=== PATIENT | female | born 1990 | race Two or more races ===

== ENCOUNTER 2019-04-10 00:14 | Emergency (ER) | payer SELFPAY ==
[2019-04-10] MEDS ORDERED: Diphtheria,Pertussis(Acell),Tetanus Vaccine 0.5 ML Syringe IM ONE (00:37)
[2019-04-10] MEDS ORDERED: Silver Sulfadiazine 1% Crm 50 GM Tube TOP ONE (00:37)
[2019-04-10] MEDS ORDERED: Sodium Chloride 0.9% 1,000 ML IV ONE ×2 (00:37→00:39)
[2019-04-10] MEDS ORDERED: Morphine 2 MG/ML Syringe IVPUSH ONE ×2 (00:37→02:24)
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
[2019-04-10 01:19] LABS: CHLORIDE,CL 105 mmol/L (98-107); SODIUM,NA 143 mmol/L (136-145)
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
== END 2019-04-10 02:50 | disposition home or self-care (01) ==
LOC: MW.ED 00:14
DX: T21.31XA Burn of third degree of chest wall, initial encounter (principal); T21.21XA Burn of second degree of chest wall, initial encounter; T31.0 Burns involving less than 10% of body surface; Z23 Encounter for immunization; Z88.0 Allergy status to penicillin; W39.XXXA Discharge of firework, initial encounter
CPT/HCPCS: 16020; 36415; 71045; 80053; 81003; 81025; 85025; 90471; 90715; 96361; 96374; 96376; 99284; A9270; J2270; J7040; 99283

== ENCOUNTER 2019-04-14 13:01 | Day surgery (SDC) | payer BC ==
[2019-04-14] MEDS ORDERED: Lactated Ringers 1,000 ML IV SCH (13:30)
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
[2019-04-14] MEDS ORDERED: Lidocaine 1% with EPINEPHrine 1:100,000 20 ML MDV ONE (14:51)
[2019-04-14] MEDS ORDERED: Lidocaine 2% 5 ML SDV ONE (15:18)
[2019-04-14] MEDS ORDERED: fentaNYL 100 MCG/2 ML SDV ONE (15:18)
[2019-04-14] MEDS ORDERED: Midazolam 1 MG/ML 2 ML SDV ONE (15:18)
[2019-04-14] MEDS ORDERED: Propofol 200 MG/20 ML SDV ONE (15:18)
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
[2019-04-14] MEDS ORDERED: Acetaminophen/oxyCODONE 325-5 MG Tab PO PRN (17:09)
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
== END 2019-04-14 17:30 | disposition home or self-care (01) ==
LOC: MW.SDS 13:01
PROVIDERS: ATTEND Surgery
DX: T21.21XA Burn of second degree of chest wall, initial encounter (principal); T20.27XA Burn of second degree of neck, initial encounter; W39.XXXA Discharge of firework, initial encounter; Z88.0 Allergy status to penicillin; Z87.891 Personal history of nicotine dependence
CPT/HCPCS: 16025; 81025; A9270; J2001; J2250; J2704; J3010; J7120